=== PATIENT | female | born 1950 | race Caucasian/White ===

== ENCOUNTER 2021-06-08 02:37 | Day surgery (SDC) | payer MEDICARE, OTHER, SELFPAY ==
[2021-05-27 14:44] VITALS: BMI 37.8
--- NOTE | 2021-06-08 10:32 | WPDANESEPPF ---
Anes - Initial Pre Proc Eval Procedure: Operation Date: 06/08/21 12:30 Proposed Procedures p Colonoscopy - Oren Saldaña MD Date/Time: 06/08/21 10:32 Surgeon: Oren Saldaña MD Pre Op Diagnosis: positive cologuard Patient Data Age: 71 Gender: F Height: 1.5 m Weight: 85 kg Allergies Allergy/AdvReac Type Severity Reaction Status Date / Time cefuroxime [From Ceftin] Allergy Severe Rash Verified 06/08/21 11:12 Penicillins Allergy Unknown Rash Verified 06/08/21 11:12 Home Medications Medication Instructions Recorded Confirmed Type meloxicam 15 mg tablet 15 mg PO DAILY PRN #30 tablet 02/15/21 06/08/21 Rx cyanocobalamin (vitamin B-12) 1,000 mcg PO DAILY 04/19/21 06/08/21 History 1,000 mcg tablet fluticasone propionate 50 1 spray INTRANASAL BID #16 g 04/19/21 06/08/21 Rx mcg/actuation nasal spray,suspension [id number] C-herb no.124 1 tablet PO DAILY 05/27/21 06/08/21 History [Airborne Gummy] Patient hx anesthesia problems: none Family hx anesthesia problems: none PMFSH Past Medical History Medical History (Updated 06/08/21 @ 13:01 by Oliver Abad MD) Aortic heart murmur At high risk for falls Bilateral primary osteoarthritis of knee BMI 36.0-36.9,adult BMI 40.0-44.9, adult Breast cancer screening by mammogram Bruxism Chronic anxiety Colon cancer screening Cologuard screening 05/17/2021 positive. normal colonoscopy 06/08/2021 Degenerative arthritis of left foot Encounter for Medicare annual wellness exam Mitral regurgitation and aortic stenosis Mixed hyperlipidemia Obesity Osteoarthritis of both knees Positive colorectal cancer screening using Cologuard test (05/17/21) normal colonoscopy on 06/08/[address] Saldaña Situational anxiety Tension headache, chronic TMJ syndrome Vitamin B12 deficiency anemia Surgical History Surgical History (Updated 06/04/21 @ 12:29 by Jarrell Pierce DO) History of tubal ligation Family History Family History Father Hypertension Mother Hypertension Family history of Parkinson's disease Grandparent Diabetes mellitus Social History Social History Smoking packs per day: 2 Smoking cigarettes per day: 40.0 Years smoked: 10 Smoking pack-years: 20.00 Smoking status: Former smoker Smoking end date: 10/02/84 Alcohol intake: current Spiritual care concerns: No Anes - Eval Final PreProcedure Day of Procedure 06/08/21 10:32 Patient weight: obese Heart: regular rate and rhythm Lungs: clear to auscultation and normal air movement Airway: Mallampati scale class II Neurological: alert and oriented Last oral intake: >/= 8 hours ASA classification: III Emergent: no Anesthetic plan: proceed Anesthesia type and monitoring: general GIVS and standard monitoring Informed Consent: The patient's anesthetic plan and its attendant risks and benefits were discussed with the patient/family/POA. Questions were solicited and answers provided to the satisfaction of the patient/family/POA.
[2021-06-08 11:14] VITALS: BP 146/94; PULSE 90; RESP 18; TEMP 37.1; O2SAT 97; BMI 36.7
[2021-06-08] MEDS: LACTATED RINGERS 1,000 ML 150 ML IV CONT (11:17)
--- NOTE | 2021-06-08 11:22 | WPDGICN ---
Assessment and Plan Assessment and plan (1) Positive colorectal cancer screening using Cologuard test: Onset Date: 05/17/21 Code(s): R19.5 - Other fecal abnormalities Status: Acute Assessment and Plan: Patient recently found to have positive Cologuard test. Plan is for screening colonoscopy to evaluate more thoroughly. Further recommendations will be given after endoscopy. GI Consult Note Consult date/time: 06/08/21 11:22 HPI: Jessica Archer is a 71 year old female Presents for screening colonoscopy. Patient recently found to have positive Cologuard test. Patient reports that her current weight appetite bowel movements are normal. She denies abdominal pain. She has had no bleeding. Family history is noncontributory. Her last exam was about 20 years ago. Review of Systems Review of Systems: All systems reviewed & are unremarkable except as noted in HPI and below PMFSH Past Medical History Medical History (Updated 05/25/21 @ 07:38 by Oliver Abad MD) Aortic heart murmur At high risk for falls Bilateral primary osteoarthritis of knee BMI 36.0-36.9,adult BMI 40.0-44.9, adult Breast cancer screening by mammogram Bruxism Chronic anxiety Colon cancer screening Cologuard screening 05/17/2021 positive. Degenerative arthritis of left foot Encounter for Medicare annual wellness exam Mitral regurgitation and aortic stenosis Mixed hyperlipidemia Obesity Osteoarthritis of both knees Positive colorectal cancer screening using Cologuard test (05/17/21) Situational anxiety Tension headache, chronic TMJ syndrome Vitamin B12 deficiency anemia Surgical History Surgical History (Updated 06/04/21 @ 12:29 by Jarrell Pierce DO) History of tubal ligation Family History Family History Father Hypertension Mother Hypertension Family history of Parkinson's disease Grandparent Diabetes mellitus Social History Social History Smoking packs per day: 2 Smoking cigarettes per day: 40.0 Years smoked: 10 Smoking pack-years: 20.00 Smoking status: Former smoker Smoking end date: 10/02/84 Alcohol intake: current Living arrangements: alone Spiritual care concerns: No Meds Home Medications and Allergies Home Medications Medication Instructions Recorded Confirmed Type meloxicam 15 mg tablet 15 mg PO DAILY PRN #30 tablet 02/15/21 06/08/21 Rx cyanocobalamin (vitamin B-12) 1,000 mcg PO DAILY 04/19/21 06/08/21 History 1,000 mcg tablet fluticasone propionate 50 1 spray INTRANASAL BID #16 g 04/19/21 06/08/21 Rx mcg/actuation nasal spray,suspension [id number] C-herb no.124 1 tablet PO DAILY 05/27/21 06/08/21 History [Airborne Gummy] Allergies Allergy/AdvReac Type Severity Reaction Status Date / Time cefuroxime [From Ceftin] Allergy Severe Rash Verified 06/08/21 11:12 Penicillins Allergy Unknown Rash Verified 06/08/21 11:12 Vital Signs Vital Signs - 24 hr 06/08/21 11:14 Temperature 98.8 F Pulse Rate 90 Respiratory Rate 18 Blood Pressure 146/94 H Pulse Oximetry 97 Exam Narrative: Physical exam reveals patient to be alert. Vital signs stable. HEENT exam is unremarkable. Patient is anicteric. Lungs are clear to auscultation and percussion. Heart is without murmur or extra sounds. Abdominal exam bowel sounds are present soft nontender with no organomegaly. Digital external rectal exam is normal.
[2021-06-08 12:15] VITALS: BP 113/71; PULSE 82; RESP 17; O2SAT 93
[2021-06-08 12:25] VITALS: BP 113/74; PULSE 88; RESP 18; O2SAT 97
== END 2021-06-08 12:40 | disposition home or self-care (01) ==
PROVIDERS: PCP Family Medicine; Visit Provider Internal Medicine Gastroenterology
PROC: 0DJD8ZZ Inspection of Lower Intestinal Tract, Via Natural or Artificial Opening Endoscopic (ICD-10-PCS; CPT 45378; principal; 2021-06-08 12:30)
DX: R19.5 Other fecal abnormalities (principal); K64.8 Other hemorrhoids; D51.9 Vitamin B12 deficiency anemia, unspecified; F41.9 Anxiety disorder, unspecified; I34.0 Nonrheumatic mitral (valve) insufficiency; I35.0 Nonrheumatic aortic (valve) stenosis; E66.9 Obesity, unspecified; Z68.36 Body mass index [BMI] 36.0-36.9, adult; Z87.891 Personal history of nicotine dependence
CPT/HCPCS: 45378; J2001; J2704; J7120

== ENCOUNTER 2021-06-16 12:44 | Outpatient (CLI) | payer MEDICARE, OTHER, SELFPAY ==
--- NOTE | ~2021-06-16 | MM_ITS ---
EXAMINATION: MM screening promise BI w enoch HISTORY: Screening TECHNIQUE: Craniocaudal and mediolateral oblique 3-D tomosynthesis images were obtained and synthetic 2-D images were generated. CAD analysis was submitted and interpreted. COMPARISON: Comparison to multiple prior studies sequentially, with oldest reviewed study dated 02/17. BREAST PARENCHYMAL COMPOSITION: The breasts are heterogeneously dense, which may obscure small masses . FINDINGS: There is no evidence of suspicious mass, calcification, or architectural distortion to sugg est malignancy in either breast. There has been no suspicious interval change. IMPRESSION: 1. No mammographic evidence of malignancy. 2. Recommend routine screening mammography in one year. BI-RADS Category 1: Negative Reviewed, dictated and finalized at location A.
== END 2021-06-16 12:45 | disposition home or self-care (01) ==
PROVIDERS: PCP Family Medicine; Visit Provider Family Medicine
DX: Z12.31 Encounter for screening mammogram for malignant neoplasm of breast (principal)
CPT/HCPCS: 77063; 77067

== ENCOUNTER 2021-09-02 12:19 | Emergency (ER) | payer MEDICARE, OTHER, SELFPAY ==
[2021-09-02] VITALS (17 sets, daily range): BP systolic 121–150; BP diastolic 71–108; PULSE 73–95; RESP 12–20; TEMP 36.8; O2SAT 98–100
--- NOTE | ~2021-09-02 | CT_ITS ---
EXAMINATION: CT BRAIN W/O DATE: 09/02/2021 17:41 INDICATION: Dizziness TECHNIQUE: Computed tomography (CT) of the head was performed without intravenous contrast. The dose- length product was 605.33 mGy-cm. Automated exposure control and iterative reconstruction technique w ere employed. COMPARISON: No prior studies for comparison. FINDINGS: Normal brain parenchymal volume for age. Normal ybarra-white differentiation. No acute intrac ranial hemorrhage, infarction, mass or mass effect. No ventriculomegaly or midline shift. Midline sagittal images demonstrate a normal corpus callosum, c raniovertebral junction and sella turcica. Basilar cisterns are patent. There is mild mucosal thickening of the right maxillary sinus with mucoperiosteal reaction. Mastoids are pneumatized. No depressed skull fractures. IMPRESSION: 1. No acute intracranial abnormality. Reviewed, dictated and finalized at location B. AIN FISHING VESSEL
--- NOTE | 2021-09-02 17:19 | ED.DIZZY ---
HPI - Dizziness General Chief Complaint: Dizziness Stated Complaint: lightheaded since yesterday Time Seen by Provider: 09/02/21 17:19 Source: patient Mode of arrival: ambulatory Limitations: no limitations History of Present Illness HPI Narrative: Patient is a 71-year-old female complaining of dizziness, described as the room spinning, worse with head movement and ambulation, started this morning. Patient states that she was so dizzy that she had 1 episode of nausea and vomiting earlier today. Patient denies any headache, speech or visual disturbance, focal weakness or numbness, or unsteady gait. Patient denies any chest pain, shortness of breath, abdominal pain,, fever or chills. Related Data Home Medications Medication Instructions Recorded Confirmed cyanocobalamin (vitamin B-12) 1,000 mcg PO DAILY 04/19/21 06/23/21 1,000 mcg tablet [id number]-[id number] C-herb no.124 1 tablet PO DAILY 05/27/21 06/23/21 [Airborne Gummy] Allergies Allergy/AdvReac Type Severity Reaction Status Date / Time cefuroxime [From Ceftin] Allergy Severe Rash Verified 06/23/21 11:05 Penicillins Allergy Unknown Rash Verified 06/23/21 11:05 Review of Systems Review of Systems: All systems reviewed & are unremarkable except as noted in HPI and below Constitutional: Constitutional: Denies body ache(s), Denies chills, Denies excessive sweating, Denies fatigue, Denies fever(s), Denies headache(s), Denies lethargy, Denies malaise, Denies weakness and Denies weight loss Eyes: Eyes: Denies blurry vision, Denies change in vision and Denies loss of vision ENT: Denies dizziness, Denies ear discharge, Denies headache(s), Denies lip swelling, Denies epistaxis, Denies nasal congestion, Denies neck pain, Denies throat swelling and Denies tongue swelling Cardiovascular: Cardiovascular: Denies chest pain, Denies chest pain at rest, Denies chest pain with activity, Denies diaphoresis, Denies rapid heart rate, Denies edema, Denies irregular heart rhythm, Denies lightheadedness, Denies palpitations, Denies dyspnea and Denies dyspnea on exertion Respiratory: Respiratory: Denies chest congestion, Denies cough, Denies hemoptysis, Denies dyspnea and Denies dyspnea on exertion Gastrointestinal: Gastrointestinal: Denies abdominal pain, Denies melena, Denies hematochezia, Denies diarrhea, Denies nausea, Denies vomiting and Denies hematemesis Musculoskeletal: Musculoskeletal: Denies abnormal gait, Denies deformity, Denies joint swelling, Denies limited range of motion, Denies neck pain and Denies numbness Neurologic: Denies Abnormal speech present, Denies abnormal gait, Denies confusion, Denies headache(s), Denies focal weakness, Denies loss of vision, Denies numbness, Denies Other visual disturbances, Denies Sensory deficit (Neuro) and Denies weakness Psychiatric: Psychiatric: Denies confusion, Denies depression, Denies auditory hallucinations, Denies homicidal ideation and Denies suicidal ideation Endocrine: Endocrine: Denies cold intolerance, Denies excessive sweating, Denies fatigue, Denies heat intolerance and Denies palpitations Hematologic/Lymphatic: Hematologic/Lymphatic: Denies easy bleeding and Denies easy bruising Allergic/Immunologic: Allergic/Immunologic: Denies lip swelling, Denies throat swelling and Denies tongue swelling PMFSH Past Medical History Medical History Aortic heart murmur At high risk for falls Bilateral primary osteoarthritis of knee BMI 36.0-36.9,adult BMI 40.0-44.9, adult Breast cancer screening by mammogram normal mammogram 06/16/2021 Bruxism Chronic anxiety Colon cancer screening Cologuard screening 05/17/2021 positive. normal colonoscopy 06/08/2021 Degenerative arthritis of left foot Encounter for Medicare annual wellness exam Mitral regurgitation and aortic stenosis Mixed hyperlipidemia Obesity Osteoarthritis of both knees Positive colorectal cancer screening using Cologuard test
[2021-09-02] MEDS: MECLIZINE HCL 25 MG TABLET PO (17:45)
[2021-09-02] MEDS: LACTATED RINGERS 1,000 ML 250 ML IV CONT (17:51)
[2021-09-02] MEDS: PROMETHAZINE HCL 25 MG/ML AMPUL 12.5 MG IV PUSH (17:51)
[2021-09-02 17:59] LABS: Basophils Percent Auto 0.6 % (0.2-1.2); Eosinophils Percent Auto 0.3 % (0-4.4); Hematocrit 43.4 % (37.0-47.0); Hemoglobin 14.8 g/dL (12.0-15.0); Immature Granulocyte Absolute 0.04 K/mm3 (0.00-0.031); Immature Granulocyte Percent A 0.6 % (0-0.5); Lymphocytes Percent Auto 22.6 % (18.3-44.2); Mean Corpuscular HGB Conc 34.1 g/dl (32-36); Mean Corpuscular Hemoglobin 32.5 pg (26-34); Mean Corpuscular Volume 95.2 fl (80-100); Mean Platelet Volume 10.3 fl (7.4-10.4); Monocytes Absolute Auto 0.7 K/mm3 (0.1-0.6); Monocytes Percent Auto 10.9 % (2.6-8.5); Neutrophils Absolute Auto 4.3 K/mm3 (1.3-6.7); Platelet Count Result 280 k/mm3 (150-375); Red Blood Count 4.56 M/mm3 (4.2-5.4); Red Cell Distribution Width 13.2 % (11.5-14.5); White Blood Count 6.6 K/mm3 (4.5-10.0)
[2021-09-02 18:09] LABS: Alanine Aminotransferase 16 U/L (4-35); Albumin Level 4.3 g/dL (3.5-5.1); Alkaline Phosphatase 89 U/L (38-126); Anion Gap 7 mmol/L (8-16); Aspartate Amino Transferase 22 U/L (14-36); Bilirubin,Total 0.5 mg/dL (0.2-1.3); Blood Urea Nitrogen 12 mg/dL (7-17); Calcium 9.8 mg/dL (8.4-10.2); Carbon Dioxide 26 mmol/L (22-30); Chloride 103 mmol/L (98-107); Estimated Glomerular Filt Rate > 60; Glucose 131 mg/dL (65-110); Potassium 3.7 mmol/L (3.4-5.0); Sodium 136 mmol/L (137-145)
[2021-09-02 18:20] LABS: Troponin I < 0.012 ng/mL (0.000-0.034)
[2021-09-02 18:43] LABS: Add Urine Microscopic? YES; Appearance Urine Cloudy (Clear); Bacteria Urine 2+ /hpf; Bilirubin Urine Negative (Negative); Blood Urine Negative (Negative); Color Urine Amber (Yellow); Glucose Urine UA Negative (Negative); Ketones Urine Negative (Negative); Leukocyte Esterase Ur 1+ LEU/UL (Negative); Mucus Urine Heavy /lpf; Nitrate Urine Negative (Negative); Protein Urine Negative (Negative); Specific Grav Ur 1.023 (1.001-1.035); Squamous Epithelial Cell Urine Many /hpf (Few); Urobilinogen Urine Negative mg/dL (<2.0)
--- NOTE | 2021-09-02 19:17 | ECG_ITS ---
Measurements Intervals [place] Rate: 72 P: 35 AK: 132 QRS: -21 QRSD: 95 T: 22 QT: 399 QTc: 439 Interpretive Statements SINUS RHYTHM NORMAL ECG Electronically Signed On 09-03-2021 5:52:24 LACE PAPER MACHINE OPERATOR by Olvin Soni D.O.
== END 2021-09-02 20:07 | disposition home or self-care (01) ==
PROVIDERS: Emergency Provider Emergency Medicine; PCP Family Medicine
DX: R42 Dizziness and giddiness (principal); F41.8 Other specified anxiety disorders; E78.2 Mixed hyperlipidemia; E66.9 Obesity, unspecified; Z87.891 Personal history of nicotine dependence; Z79.899 Other long term (current) drug therapy; Z68.36 Body mass index [BMI] 36.0-36.9, adult
CPT/HCPCS: 36415; 70450; 80053; 81001; 84484; 85025; 87086; 87088; 93005; 96361; 96374; 99284; A9270; J2550; J7120

== ENCOUNTER 2021-12-06 13:35 | Outpatient (CLI) | payer MEDICARE, OTHER, SELFPAY ==
--- NOTE | 2021-12-06 | ECG_ITS ---
Measurements Intervals [place] Rate: 86 P: 60 MI: 124 QRS: -21 QRSD: 88 T: 57 QT: 361 QTc: 433 Interpretive Statements SINUS RHYTHM BORDERLINE LEFT AXIS DEVIATION [QRS AXIS < -20] OTHERWISE UNREMARKABLE ECG COMPARED TO ECG 09/02/2021 19:27:07 NO SIGNIFICANT CHANGES Electronically Signed On 12-06-2021 15:52:43 COATING ENGINEER by Prashanth Byrd M.D.
[2021-12-06 14:16] LABS: Hematocrit 45.9 % (37.0-47.0); Hemoglobin 15.6 g/dL (12.0-15.0)
[2021-12-06 14:30] LABS: Hemoglobin A1C 5.1 % (<5.7)
[2021-12-06 14:33] LABS: Albumin Level 4.5 g/dL (3.5-5.1); Estimated Glomerular Filt Rate 55
[2021-12-06 14:53] LABS: Glucose 123 mg/dL (65-110)
== END 2021-12-06 13:36 | disposition home or self-care (01) ==
PROVIDERS: PCP Family Medicine; Visit Provider Orthopaedic Surgery
DX: M17.12 Unilateral primary osteoarthritis, left knee (principal); Z01.818 Encounter for other preprocedural examination
CPT/HCPCS: 82040; 82565; 82947; 83036; 85014; 85018; 93005

== ENCOUNTER 2022-02-07 11:32 | Outpatient (CLI) | payer MEDICARE, OTHER, SELFPAY ==
[2022-02-07 13:12] LABS: Basophils Percent Auto 0.5 % (0.2-1.2); Eosinophils Absolute Auto 0.1 K/mm3 (0-0.3); Eosinophils Percent Auto 1.9 % (0-4.4); Hemoglobin 14.3 g/dL (12.0-15.0); Immature Granulocyte Absolute 0.01 K/mm3 (0.00-0.031); Immature Granulocyte Percent A 0.2 % (0-0.5); Lymphocytes Percent Auto 36.7 % (18.3-44.2); Mean Corpuscular HGB Conc 32.5 g/dl (32-36); Mean Corpuscular Volume 95.4 fl (80-100); Mean Platelet Volume 9.8 fl (7.4-10.4); Monocytes Absolute Auto 0.6 K/mm3 (0.1-0.6); Monocytes Percent Auto 9.6 % (2.6-8.5); Neutrophils Absolute Auto 2.9 K/mm3 (1.3-6.7); Neutrophils Percent Auto 51.1 % (45.5-73.1); Platelet Count Result 275 k/mm3 (150-375); Red Blood Count 4.61 M/mm3 (4.2-5.4); Red Cell Distribution Width 13.1 % (11.5-14.5); White Blood Count 5.7 K/mm3 (4.5-10.0)
[2022-02-07 13:21] LABS: Albumin Level 4.2 g/dL (3.5-5.1); Estimated Glomerular Filt Rate > 60; Glucose 109 mg/dL (65-110)
== END 2022-02-07 11:33 | disposition home or self-care (01) ==
PROVIDERS: PCP Family Medicine; Visit Provider Orthopaedic Surgery
DX: M17.12 Unilateral primary osteoarthritis, left knee (principal); Z01.818 Encounter for other preprocedural examination
CPT/HCPCS: 82040; 82565; 82947; 85025; 87081

== ENCOUNTER 2022-02-09 11:30 | Outpatient (CLI) | payer MEDICARE, OTHER, SELFPAY ==
[2022-02-09 11:56] LABS: Urine Cotinine NEGATIVE
== END 2022-02-09 11:31 | disposition home or self-care (01) ==
LOC: ANHSURGERY 11:30
PROVIDERS: PCP Family Medicine; Visit Provider Orthopaedic Surgery
DX: M17.0 Bilateral primary osteoarthritis of knee (principal); Z01.818 Encounter for other preprocedural examination
CPT/HCPCS: 80307

== ENCOUNTER 2022-03-09 11:09 | Observation (INO) | payer MEDICARE, OTHER, SELFPAY ==
[2022-02-07 11:53] VITALS: BMI 38.7
--- NOTE | 2022-02-07 12:25 | PC.NURSE ---
Addendum entered by Kelsey Palumbo RN 02/07/22 12:31: TOTAL JOINT CLASS 02/16/22 AT 10 AM Original Note: Report to the Outpatient Waiting Room, entrance under the green pavilion located off [address], at time _0830 on date _03/08/22 . OR Time: _1030 . - You and your visitor will be asked a series of questions to screen for COVID 19 for your protection. - Only one visitor is allowed at this time. - The patient visitor is requested to leave or wait in car when not with patient. - A mask is required within the hospital. Patients may have clear liquids (water, carbonated beverages, clear teas, apple juice) until 3 hours prior to surgery with a maximum of 20 ounces. - No food from midnight until time of surgery - Infants may have breast milk until 4 hours before surgery, infant formula 6 hours prior to surgery. - Children will be allowed to drink immediately following surgery. If applicable, please bring a bottle or sippy cup to assist with drinking. Juice, water, soda, and popsicles are readily available. For infants on formula, please bring formula the day of surgery. Pacifiers are allowed. Take the following medications with a SIP of water the morning of surgery: __NONE Medications to discontinue per physician ___MELOXICAM 7 DAYS PRE OP Date to take last dose 02/28/22 Please no make-up, nail pitcairn islander, hairspray, perfume, deodorant, or body powder the day of surgery. No jewelry (including any body piercings) or valuables the day of surgery, leave them at home. Please take a shower or bath the night before, or the morning of, surgery with an antibacterial soap. Wear comfortable, loose fitting clothing. Children are encouraged to wear pajamas. - Jewelry must be removed prior to entering the operating room. Rings and piercings that are not removed may be cut off. - The hospital will not accept responsibility for valuables. - Please leave all valuables, including medications, at home the day of surgery. If you are going home after surgery, a licensed helper driver must drive you home. - NO public transportation without another adult. - We recommend that an adult stay with you for 24 hours following discharge. - We also recommend that you do not drive, make important decision, drink alcoholic beverages, or take any drugs that were not prescribed by your health care provider for at least 24 hours after your discharge time. For Pediatric surgeries, we recommend two adults accompany the child home (only one inside the building at this time). Follow any additional instructions given to you from your surgeon. If you or anyone in your household have experienced Covid symptoms in the past week, please notify your surgeon or the nurse liaison at the phone number below for possible testing. VERBAL AND WRITTEN instructions given to _PATIENT and asked if any additional questions and then verbalized understanding. Patient advised to call surgeon office or pre surgery nurse liaison [phone] if any additional questions.
[2022-02-07 12:51] VITALS: BP 143/76; PULSE 73; RESP 18; TEMP 36.7; O2SAT 98
--- NOTE | 2022-03-07 13:40 | WPDANESEPPF ---
Anes - Initial Pre Proc Eval Procedure: Operation Date: 03/08/22 10:30 Proposed Procedures p Left Total Knee Arthroplasty - Yusuf Christien MD Date/Time: 03/07/22 13:40 Surgeon: Yusuf Christine MD Pre Op Diagnosis: primary OA left knee Patient Data Age: 72 Gender: F Height: 1.5 m Weight: 87 kg Last Vital Signs Temp 36.7 C 02/07/22 12:51 Pulse 73 02/07/22 12:51 Resp 18 02/07/22 12:51 BP 143/76 H 02/07/22 12:51 Pulse Ox 98 02/07/22 12:51 O2 Del Method Room Air 02/07/22 12:51 Allergies Allergy/AdvReac Type Severity Reaction Status Date / Time cefuroxime [From Ceftin] Allergy Severe Rash Verified 03/08/22 08:34 Penicillins Allergy Unknown Unknown Verified 03/08/22 08:34 Home Medications Medication Instructions Recorded Confirmed Type omeprazole 20 mg capsule,delayed 20 mg PO DAILY #30 caps 06/30/21 03/08/22 Rx release meloxicam 7.5 mg tablet 7.5 mg PO BID 02/04/22 03/08/22 History Patient hx anesthesia problems: none Family hx anesthesia problems: none Results Review: All pre-operative results and documents have been reviewed as part of the pre-operative evaluation. [facility] Past Medical History Medical History (Updated 03/07/22 @ 13:42 by Richard Garcia MD) Aortic heart murmur mild aortic stenosis - 1.8 cm2 03/2019 At high risk for falls Bilateral primary osteoarthritis of knee BMI 36.0-36.9,adult BMI 37.0-37.9, adult BMI 40.0-44.9, adult Breast cancer screening by mammogram normal mammogram 06/16/2021 Bruxism Chronic anxiety Colon cancer screening Cologuard screening 05/17/2021 positive. normal colonoscopy 06/08/2021 Degenerative arthritis of left foot Encounter for Medicare annual wellness exam Former smoker Mitral regurgitation and aortic stenosis Mixed hyperlipidemia Obesity Osteoarthritis of both knees Positive colorectal cancer screening using Cologuard test (05/17/21) normal colonoscopy on 06/08/[address] Saldaña Situational anxiety Tension headache, chronic TMJ syndrome Urinary incontinence Vertigo Vitamin B12 deficiency anemia Surgical History Surgical History History of tubal ligation Family History Family History Father Hypertension Mother Hypertension Family history of Parkinson's disease Grandparent Diabetes mellitus Social History Social History Smoking packs per day: 1 Smoking cigarettes per day: 20.0 Years smoked: 18 Smoking pack-years: 18.00 Smoking status: Former smoker Tobacco type: cigarettes Smoking end date: 10/02/84 Additional smoking assessment comments: DENIES ANY FORM OF TOBACCO USE Alcohol intake: current Living arrangements: alone Spiritual care concerns: No Anes - Eval Final PreProcedure Day of Procedure 03/07/22 13:40 Patient weight: obese Heart: regular rate and rhythm Lungs: clear to auscultation and normal air movement Airway: Mallampati scale class II Neurological: alert and oriented Last oral intake: >/= 8 hours ASA classification: III Emergent: no Anesthetic plan: proceed Anesthesia type and monitoring: general LMA and standard monitoring Results Review: All pre-operative results and documents have been reviewed as part of the pre-operative evaluation. Informed Consent: The patient's anesthetic plan and its attendant risks and benefits were discussed with the patient/family/POA. Questions were solicited and answers provided to the satisfaction of the patient/family/POA.
--- NOTE | 2022-03-07 13:42 | WPDANESPNB ---
Anes - Peripheral Nerve Block Date/Time: 03/07/22 13:42 I have discussed with the patient/family/POA the placement of a peripheral nerve block for post-operative pain management, including associated risks, benefits, complications, and side effects. Alternative methods of post-operative analgesia were detailed. Questions were solicited and answers provided to the satisfaction of the patient/family/POA. Time-Out: A pre-procedural Time-Out was completed immediately before starting the procedure and confirmed: Patient Identification, Site, Procedure, Patient Position and the Availability of Requisite Equipment. Clinical Indications: Acute post-operative pain management requested by the operative surgeon. Nerve Block Insertion Note Anes-nerve block: adductor canal left Patient position: supine Skin prep: chlorhexidine Needle: 22 gauge, stimulating, insulated echogenic needle. Needle length: 80 mm Technique: ultrasound Technique comment: in plane Injectate: bupivacaine 0.5% with epi 5 mcg/ml (30cc) Observations: tolerated well Complications: none Procedure start time:: 1005 Procedure end time:: 1010
[2022-03-08] VITALS (16 sets, daily range): BP systolic 104–145; BP diastolic 54–74; PULSE 72–98; RESP 12–19; TEMP 36.4–37.6; O2SAT 96–100
--- NOTE | 2022-03-08 07:18 | WPDHPUPDATE1 ---
History and Physical Update Update Date/Time: 03/08/22 07:18 History and Physical has been reviewed, including an updated exam of the patient. There are NO changes in the patient's condition. Risks, benefits, and alternatives have been discussed and questions answered. Patient agrees to proceed with procedure.
[2022-03-08] MEDS: ACETAMINOPHEN 500 MG TABLET 1000 MG PO (08:38)
[2022-03-08] MEDS: LACTATED RINGERS 1,000 ML 30 ML IV CONT ×2 (08:57→12:54)
[2022-03-08] MEDS: TRANEXAMIC ACID 1,000MG/ISO100 1,000 MG/100 ML BAG 200 MG IVPB (10:00)
--- NOTE | 2022-03-08 10:24 | PM.HPGS ---
History of Present Illness History of Present Illness Consent: Risks, benefits, and alternatives have been discussed and questions answered. Patient agrees to proceed with procedure. Chief complaint: primary OA left knee Narrative: Patient presents for pre-op visit for Left TKA. No other changes. Severe left knee pain and stiffness. Severe left worse than right knee pain and difficulty with ADL's. Uses a cane. Unable to walk more than 2 blocks. Examination? Morbidly obese.? No distress.? Severe limp with a cane.? Bilateral knee contractures.? Left knee 20? to 60?.? Right knee 15? to 115?.? Also varus deformity.? Walks with a show slow shuffling gait with small steps.? Hip examination benign.? Distal neurovascular status intact.? No instability of the knee.? No skin rashes or lesions.? No previous scars. Diagnostics? Bilateral knee films show severe tricompartmental arthritis.? Involving all 3 compartments with moderate to severe varus deformity.? Osteopenia suggested. Impression? End-stage arthritis bilateral knees.? Left mostly symptomatic.? Failed therapy and injections.? I recommend left total knee arthroplasty.?? Anticipate a posterior stabilized knee design. Will also perform an intraarticular steroid injection right knee. Review of Systems Review of Systems: All systems reviewed & are unremarkable except as noted in HPI and below PMFSH Past Medical History Medical History Aortic heart murmur mild aortic stenosis - 1.8 cm2 03/2019 At high risk for falls Bilateral primary osteoarthritis of knee BMI 36.0-36.9,adult BMI 37.0-37.9, adult BMI 40.0-44.9, adult Breast cancer screening by mammogram normal mammogram 06/16/2021 Bruxism Chronic anxiety Colon cancer screening Cologuard screening 05/17/2021 positive. normal colonoscopy 06/08/2021 Degenerative arthritis of left foot Encounter for Medicare annual wellness exam Former smoker Mitral regurgitation and aortic stenosis Mixed hyperlipidemia Obesity Osteoarthritis of both knees Positive colorectal cancer screening using Cologuard test (05/17/21) normal colonoscopy on 06/08/[address] Saldaña Situational anxiety Tension headache, chronic TMJ syndrome Urinary incontinence Vertigo Vitamin B12 deficiency anemia Surgical History Surgical History History of tubal ligation Family History Family History Father Hypertension Mother Hypertension Family history of Parkinson's disease Grandparent Diabetes mellitus Social History Social History Smoking packs per day: 1 Smoking cigarettes per day: 20.0 Years smoked: 18 Smoking pack-years: 18.00 Smoking status: Former smoker Tobacco type: cigarettes Smoking end date: 10/02/84 Additional smoking assessment comments: DENIES ANY FORM OF TOBACCO USE Alcohol intake: current Living arrangements: alone Spiritual care concerns: No Meds Home Medications and Allergies Home Medications Medication Instructions Recorded Confirmed Type omeprazole 20 mg capsule,delayed 20 mg PO DAILY #30 caps 06/30/21 03/08/22 Rx release meloxicam 7.5 mg tablet 7.5 mg PO BID 02/04/22 03/08/22 History Allergies Allergy/AdvReac Type Severity Reaction Status Date / Time cefuroxime [From Ceftin] Allergy Severe Rash Verified 03/08/22 08:34 Penicillins Allergy Unknown Unknown Verified 03/08/22 08:34 Vital Signs Vital Signs - 24 hr 03/08/22 08:25 Temperature 36.9 C Pulse Rate 96 Respiratory Rate 16 Blood Pressure 143/74 H Pulse Oximetry 98 Oxygen Delivery Room Air Assessment and Plan Assessment and plan (1) Osteoarthritis of both knees: Code(s): M17.0 - Bilateral primary osteoarthritis of knee Status: Acute
[2022-03-08] MEDS: CLINDAMYCIN 900 MG/D5W 50 ML 900 MG/50 ML PIGGYBACK 50 MG IVPB (10:32)
[2022-03-08] MEDS: methylPREDNISolone ACETATE 80 MG/ML VIAL I-ARTICULR (11:00)
--- NOTE | 2022-03-08 14:36 | ADMGEN ---
This patient, Jessica Archer, was admitted to Medical Room 260-01. Patient/family oriented to hospital policies and general routines including ID bracelet, bed and alarms, visiting hours, pain management, procedures, bathroom and other care routines, personal items, smoking policy, room service/diet, and visiting hours. Information on how to activate the Rapid Response Team has been discussed. Patient/Family are encouraged to report perceived risks to care and to ask questions if they do not understand what they are told or what they should do.
[2022-03-08] MEDS: SENNA/DOCUSATE SODIUM TABLET 2 TAB PO (16:37)
[2022-03-08] MEDS: MELOXICAM 7.5 MG TABLET PO (16:37)
[2022-03-08] MEDS: ASPIRIN 81 MG ENTERIC TABLET PO (16:38)
--- NOTE | 2022-03-08 17:36 | W.PM.PROC2 ---
Procedure Note - Detailed Date of Procedure 03/08/22 Pre-op Diagnosis Primary OA bilateral knees. Post-op Diagnosis Same Procedure Performed 1. Total knee arthroplasty, left knee. 2. Depo Medrol injection right knee. Surgeon Yusuf Christine MD Academic Tutor Lizbet Mulligan PA-C Anesthesia General and Regional (subsartorial block) Findings Good bone quality. Large medial release required. Flexion contracture and varus deformity corrected. Standard bony resections. Posterior stabilized knee. Description of Procedure The patient was brought to the operating room. A general anesthetic was administered. The right leg injection site was prepped and draped with alcohol and Betadine. 80 mg Depo-Medrol was injected into the suprapatellar pouch. Sterile adhesive bandage was applied. The left leg was prepped and draped in the usual sterile fashion. The limb was elevated and the tourniquet inflated to 300 mmHg during initial exposure, and cementation. A longitudinal incision was created along the medial border of the patella and patellar tendon, and a trivector approach to the knee was performed. very large medial release was taken. The knee was then flexed. The osteophytes were carefully removed. The intramedullary guide was placed in the femoral canal. The distal femoral resection was then taken with the oscillating saw. The collateral ligaments were carefully protected. The tibia was carefully exposed. The jig was applied, and the proximal tibia was resected according to preoperative plan. The knee was balanced in extension. Appropriate releases were taken where needed. The anterior cruciate ligament and meniscal remnants were removed. The posterior cruciate ligament was sacrificed. The patella was measured. Patellar resection was carried out with the oscillating saw. The lug holes drilled. The femur was sized and rotation assessed using a combination of gap balancing, posterior referencing, and the AP axis. The 4 in 1 cutting block, and box cut guide were used to finish the femoral cuts after equal gaps were assured. The osteophytes were carefully removed from the back of the knee. The knee was copiously irrigated with antibiotic solution periodically throughout the procedure. The meniscal remnants were removed. The spacer block was used to confirm equal flexion and extension gaps. The tibia was sized and broached. The bony surfaces were prepared for cementing with pulsatile lavage. The real tibial and femoral and patellar components were cemented into position. Excess cement was carefully removed. Patellar tracking was carefully assessed. No additional releases were required. Dilute sterile Betadine soak performed for three minutes. Copious irrigation then performed. The wound was closed with #1 Vicryl suture, #2, 2-0, and 3-0 barbed suture, followed by Steri-Strips. A sterile bulky dressing was applied. Meticulous hemostasis was maintained throughout the procedure. The bipolar cautery device was used. The pain relieving mixture was injected into the periarticular tissues during the procedure. There were no complications. The patient was extubated and brought to the recovery room in stable condition after the application of sterile dressing with Ritchie bandage. [employer] Triathlon knee system, low profile cemented tibia size 4, cemented cruciate retaining femoral component size 3 ,and an 12 mm, X3 poly, cruciate retaining polyethylene insert. 32 mm asymmetric all polyethylene patella component. Estimated Blood Loss 200 Drains No Pathology None sent Complications No immediate complications Condition Stable Disposition PACU [facility] Billing Surgery - Charge Forward: Surgery Billing
[2022-03-08] MEDS: FAMOTIDINE 20 MG TABLET PO (22:27)
[2022-03-09] VITALS (10 sets, daily range): BP systolic 97–135; BP diastolic 49–70; PULSE 76–118; RESP 16–20; TEMP 36.1–37.4; O2SAT 97–100
--- NOTE | 2022-03-09 | ECHO_ITS ---
Patient Info Name: Jessica Archer Age: 72 years : 1950 Gender: Female Ht: 58 in Wt: 188 lbs BSA: 1.92 m2 HR: 77 bpm BP: 97 / 59 mmHg Heart Rhythm: Sinus Rhythm Technical Quality: Fair Exam Date: 03/09/2022 11:29 AM Exam Location: [facility] Patient Status: Outpatient Admit Date: 03/09/2022 Staff Ordering Physician: Ashley Coffey PA-C Damper Worker: Sussy Tavera RDCS Attending Provider: Yusuf Christine MD Referring Physician: Alexx GLEZ; Exam Type: CA echo doppler color flow Study Info Indications - Syncope, Cardiac murmur Complete two-dimensional, color flow and Doppler transthoracic echocardiogram is performed. Summary 1. Complete two-dimensional, color flow and Doppler transthoracic echocardiogram is performed. 2. Left ventricular chamber dimension is normal. 3. Left ventricular systolic function is hyperdynamic, estimated at >70%. 4. The left ventricular diastolic function is grade I diastolic dysfunction. 5. E/e' 15 is elevated. 6. Left atrial chamber dimension is moderately enlarged. 7. There is moderate aortic valve sclerosis. 8. There is mild aortic valve stenosis with a peak velocity of 312 cm/s, mean gradient of 22 mmHg, and aortic valve area of 1.6 cm2. 9. The mitral valve has moderately calcified annulus. 10. There is mild mitral valve regurgitation. 11. There is trace tricuspid valve regurgitation. 12. Mild pulmonary hypertension, estimated pulmonary arterial systolic pressure is 47 mmHg. Left Ventricle E/e' 15 is elevated. Left ventricular chamber dimension is normal. Left ventricular systolic function is hyperdynamic, estimated at >70%. The left ventricular diastolic function is grade I diastolic dysfunction. Right Ventricle Right ventricular systolic function is normal and with normal TAPSE 2.2 cm. Right ventricular chamber dimension is normal. Left Atria Left atrial chamber dimension is moderately enlarged. Right Atria Right atrial chamber dimension is normal. Aortic Valve The aortic valve is trileaflet. There is moderate aortic valve sclerosis. There is mild aortic valve stenosis with a peak velocity of 312 cm/s, mean gradient of 22 mmHg, and aortic valve area of 1.6 cm2. There is no aortic valve regurgitation. Pulmonic Valve There is no pulmonic regurgitation. Mitral Valve The mitral valve has moderately calcified annulus. There is no mitral valve stenosis. There is mild mitral valve regurgitation. Tricuspid Valve There is trace tricuspid valve regurgitation. Mild pulmonary hypertension, estimated pulmonary arterial systolic pressure is 47 mmHg. Pericardium/Pleural There is no pericardial effusion. Inferior Vena Cava Normal inferior vena cava with >50% collapse upon inspiration consistent with normal right atrial pressure, 5 mmHg. Aorta The aortic root size at the sinus of Valsalva is normal. Left Ventricular Outflow Tract Name Value Normal LVOT 2D LVOT Diameter 1.9 cm LVOT Doppler LVOT Peak Gradient 10 mmHg LVOT Mean Gradient 5 mmHg LVOT VTI
--- NOTE | ~2022-03-09 | XR_ITS ---
EXAMINATION: XR knee LT 2V DATE: 03/08/2022 13:04 INDICATION: Total left knee arthroplasty. Postop. TECHNIQUE: 2 views of left knee were obtained. COMPARISON: Left knee radiographs 07/25/2019 FINDINGS: There is a total left knee arthroplasty with patellar resurfacing in near-anatomic alignmen t. No fracture. There is gas in the joint and soft tissues, consistent with recent surgery. IMPRESSION: 1. Total left knee arthroplasty in near-anatomic alignment. Reviewed, dictated and finalized at location A.
[2022-03-09] MEDS: predniSONE 5 MG TABLET PO (08:23)
[2022-03-09] MEDS: ASPIRIN 81 MG ENTERIC TABLET PO ×2 (08:23→16:26)
[2022-03-09] MEDS: FAMOTIDINE 20 MG TABLET PO ×2 (08:24→20:58)
[2022-03-09] MEDS: PANTOPRAZOLE 40 MG TABLET PO (08:24)
[2022-03-09] MEDS: MELOXICAM 7.5 MG TABLET PO ×2 (08:24→16:26)
--- NOTE | 2022-03-09 09:13 | WPDANESPN ---
Anes - Prog Note Post-Op Date/Time: 03/09/22 09:13 Cardiovascular status: normal Respiratory status: normal Airway patency: baseline Mental status: baseline Post-Op hydration status: normal Vital Signs: Last Vital Signs Temp 36.1 C L 03/09/22 04:08 Pulse 88 03/09/22 04:08 Resp 17 03/09/22 04:08 BP 123/49 L 03/09/22 04:08 Pulse Ox 100 03/09/22 04:08 O2 Del Method Room Air 03/08/22 21:29 O2 Flow Rate 8 03/08/22 13:05 Pain Score (VAS): 3 I/O: Intake & Output 03/08/22 03/09/22 03/09/22 23:59 07:59 15:59 Intake Total 440 400 240 Output Total 1200 900 Balance -760 -500 240 03/08/22 08:50 Blood Type A Negative Antibody Screen Negative Patient Feedback: Patient satisfied with anesthetic care.
--- NOTE | 2022-03-09 09:25 | PM.DS ---
DS: Admitting Diagnosis Discharge Date 03/09/22 Admitting Diagnosis OA knee Left DS: Discharge Diagnosis Discharge Diagnosis (1) Status post total left knee replacement: Code(s): Z96.652 - Presence of left artificial knee joint Status: Acute Assessment and Plan: Postop day 1: Left total knee arthroplasty. Patient tolerated procedure well. No complications. Pain manageable with pain medication. No numbness or tingling. We had a lengthy discussion regarding postoperative wound care, limitations, expectations, and exercises. Patient shows good understanding. He has had initial physical therapy and is tolerating it well. DVT prophylaxis: 81 mg baby aspirin b.i.d. for 14 days. Pain medication: Percocet. Meloxicam. Prednisone. Patient has followup appointment with Dr. Christine in 3 weeks. DS: Summary Hospital Course Reason for hospitalization: Total knee arthroplasty Hospital Course: Patient tolerated procedure well. Has had initial PT/OT. Status at Discharge Functional status at discharge: uses cane/walker Overall status at discharge: patient is progressing back to baseline Time Spent with Patient Time attestation: Total time spent providing and/or coordinating discharge services: Exam Narrative: Obese female Resting comfortably in bed. Wearing compression socks bilaterally. Dressing intact with no drainage. Moderate swelling. Small area of ecchymosis. No erythema. No hematoma. Range of motion limited due to pain. Calf nontender. Neurologic status intact. No varicosities. Distal pulses palpable. DS: Data Data Completed and Pending Labs on day of discharge: Labs from last 24 hours 03/08/22 08:50 Blood Type A Negative Antibody Screen Negative Discharge Plan Discharge Patient Disposition: Home, Self-Care Discharge Instructions: See green instruction sheet Patient Instructions: Pain Management (ED), Precautions after Total Joint Replacement Surgery (ED), Joint Replacement Surgery (GEN), Knee Replacement (GEN) Follow-up/Referrals: Lizbet Mulligan PA [Physician Electronic Intelligence Officer] - Discharge Medications: New prednisone 5 mg tablet 5 mg PO DAILY 21 Days Qty: 21 0RF aspirin 81 mg tablet,delayed release (DR/EC) 81 mg PO BID 14 Days Qty: 28 0RF oxycodone-acetaminophen 5-325 mg tablet 1 - 2 tablet PO Q4-6H MDD 6 PRN (Reason: pain) Qty: 30 0RF meloxicam 15 mg tablet 15 mg PO DAILY Qty: 30 0RF Rx Instructions: Cut in half. Take 1/2 in morning and 1/2 at night. Take with food. Stop if stomach upset. Continued meloxicam 7.5 mg tablet 7.5 mg PO BID omeprazole 20 mg capsule,delayed release(DR/EC) 20 mg PO DAILY Qty: 30 11RF
--- NOTE | 2022-03-09 09:59 | PM.PNORT ---
Progress Note: A&P Assessment and Plan (1) Status post total left knee replacement: Code(s): Z96.652 - Presence of left artificial knee joint Status: Acute Plan POD #1 Total knee arthroplasty Left. At the time of my visit, patient was doing well. Pain controlled. Was planning on discharge today. However patient had a syncopal episode when trying to get up with PT. Will consult hospitalist. Patient will likely need to stay another night. Subjective Subjective Date/Time Seen: 03/09/22 09:59 Interval history: Patient progressing well. No complaints. Review of Systems Review of Systems: All systems reviewed & are unremarkable except as noted in HPI and below Exam Narrative: 72-year-old overweight female. Resting comfortably in bed. Alert and oriented x3. No acute distress. Dressing intact with no drainage. Moderate swelling. Slight ecchymosis. No erythema. No hematoma. No warmth. Range of motion limited due to pain. Calf nontender. Neurologic status intact. No varicosities. Distal pulses palpable. Light touch sensation intact. Good capillary refill. Objective Data Vital Signs Vital Signs: Vital Signs - 24 hr 03/08/22 12:54 03/08/22 13:05 03/08/22 13:20 Temperature 99.6 F Pulse Rate 98 95 91 Respiratory Rate 19 14 12 Blood Pressure 142/70 H 134/64 141/73 H Pulse Oximetry 100 100 Oxygen Delivery Simple Face Mask Simple Face Mask Room Air Oxygen Flow Rate 8 8 03/08/22 13:35 03/08/22 13:50 03/08/22 14:05 Temperature Pulse Rate 95 87 86 Respiratory Rate 12 12 12 Blood Pressure 145/74 H 141/71 H 141/71 H Pulse Oximetry 96 96 96 Oxygen Delivery Room Air Room Air Room Air Oxygen Flow Rate 03/08/22 14:20 03/08/22 14:30 03/08/22 14:45 Temperature 97.9 F 97.9 F Pulse Rate 84 85 81 Respiratory Rate 18 16 16 Blood Pressure 136/68 134/56 L 140/63 Pulse Oximetry 98 100 100 Oxygen Delivery Room Air Oxygen Flow Rate 03/08/22 15:15 03/08/22 15:53 03/08/22 16:15 Temperature 98.0 F 97.9 F Pulse Rate 85 91 Respiratory Rate 16 16 Blood Pressure 134/58 L 132/68 Pulse Oximetry 99 96 Oxygen Delivery Room Air Oxygen Flow Rate 03/08/22 19:55 03/08/22 23:34 03/08/22 21:29 Temperature 97.6 F 97.9 F Pulse Rate 75 72 Respiratory Rate 18 16 Blood Pressure 128/57 L 104/54 L Pulse Oximetry 98 98 98 Oxygen Delivery Room Air Oxygen Flow Rate 03/08/22 20:30 03/09/22 04:08 03/09/22 09:48 Temperature 97 F L 98.6 F Pulse Rate 72 88 77 Respiratory Rate 16 17 20 Blood Pressure 123/49 L 97/59 L Pulse Oximetry 98 100 97 Oxygen Delivery Room Air Oxygen Flow Rate 03/09/22 09:28 Temperature Pulse Rate 76 Respiratory Rate Blood Pressure 97/59 L Pulse Oximetry 97 Oxygen Delivery Oxygen Flow Rate Intake/Output Intake/Output: Intake & Output 03/06/22 03/07/22 03/08/22 03/09/22 23:59 23:59 23:59 23:59 Intake Total 790 640 Output Total 1200 900 Balance -410 -260 Meds/Results Medications: Active Medications Generic Name Dose Route Start Last Admin Trade Name Freq PRN Reason Stop Dose Admin Acetaminophen 1,000 mg 03/09/22 09:00 Acetaminophen 500 Mg Tablet PO Q6H PRN Pain Rated 1-3 Aspirin 81 mg 03/08/22 17:00 03/09/22 08:23 Aspirin 81 Mg Enteric Tablet PO 81 mg BID JOSÉ MIGUEL Administration Cyclobenzaprine HCl 10 mg 03/08/22 14:23 Cyclobenzaprine Hcl 10 Mg Tablet PO Q8H PRN Spasms Diphenhydramine HCl 25 mg 03/08/22 14:23 Diphenhydramine Hcl Inj 50 Mg/Ml Vial IV PUSH Q6H PRN Itching Famotidine 20 mg 03/08/22 21:00 03/09/22 08:24 Famotidine 20 Mg Tablet PO 20 mg Q12HR JOSÉ MIGUEL Administration Fentanyl Citrate 25 mcg 03/07/22 13:30 Fentanyl Citrate Inj (*Crx) 100 Mcg/2 Ml Vial IV PUSH Q2M PRN Pain Vancomycin HCl 1,000 mg in 250 mls @ 250 mls/hr 03/09/22 00:00 03/09/22 00:16 Vancomycin 1,000 Mg/D5w 250 Ml IVPB 03/09/22 12:59 250 mls/h
--- NOTE | 2022-03-09 10:06 | PCOTNOTE ---
An occupational therapy evaluation was attempted this morning around 9:20 a.m. Upon arrival the patient was sitting up in a chair and had just finished physical therapy. The patient was reporting to this therapist that she has a device at home she uses to put on her socks/hose. The patient then proceeded to tell this therapist she was hot and feeling dizzy. The SPECIAL LIBRARY LIBRARIAN, Hilario, went to inform nursing. The patient became unresponsive and a rapid response was called. After a few minutes the patient became alert and responsive. The evaluation was told to be put on hold at that time and patient was being transferred back to bed.
--- NOTE | 2022-03-09 10:44 | PM.IMHP ---
H&P: HPI History of Present Illness Date/Time: 03/09/22 10:44 Chief Complaint: Syncope Narrative: Date of service: 03/09/2022 Jessica Archer is an extremely pleasant 72-year-old female with history anxiety, hyperlipidemia, osteoarthritis of the knees, and mild aortic stenosis who is POD #1 left total knee arthroplasty. She tolerated the procedure well and her pain was been well controlled. There were no immediate postoperative complications. The patient denies any issues with anesthesia. She did not have any shortness of breath postoperatively. No nausea or vomiting. She has been eating and drinking without difficulty. This morning she was participating in physical therapy and was up and walking around. This therapist helped her back into the chair at which time she stated she began to sweat (although she notes that she is usually a sweater), but then felt very hot and had a wave of nausea. The next thing she knew she woke up to a room full of people. Her blood pressure was noted to be 97/59 at that time. O2 sat 97% on room air. At the time of my evaluation, she is feeling back to her usual state of health. She does note that on 09/01/2021 she had an episode where she felt lightheaded and dizzy. She stated she felt ?wobbly, like I was drunk.? She thought maybe this was an episode of vertigo but she notes the room was not spinning. She was evaluated in the ED with a head CT and was sent home with meclizine, which she did not take. She notes that she has had maybe a total of 5 episodes similar to this over the course of 6 months and one time she was aware that her blood pressure was low in the 90s systolic. She reports that she had a preop EKG and blood work and was not informed of any issues with this. She states that she had an echo 3 years ago due to the presence of a murmur but was told based on these results there was nothing to worry about. She has never been evaluated by a air brake mechanic. She feels that she has been staying adequately hydrated. She is tolerating water and food intake. She has not had any episodes of diarrhea. She denies shortness of breath, chest pain, or palpitations. Denies headache. No confusion. Review of Systems Review of Systems: All systems reviewed & are unremarkable except as noted in HPI and below PMFSH Past Medical History Medical History At high risk for falls Bilateral primary osteoarthritis of knee Breast cancer screening by mammogram normal mammogram 06/16/2021 Bruxism Chronic anxiety Colon cancer screening Cologuard screening 05/17/2021 positive. normal colonoscopy 06/08/2021 Degenerative arthritis of left foot Former smoker Mild aortic stenosis Mitral regurgitation and aortic stenosis Mixed hyperlipidemia Obesity Osteoarthritis of both knees Positive colorectal cancer screening using Cologuard test (05/17/21) normal colonoscopy on 06/08/[address] Saldaña Situational anxiety Tension headache, chronic TMJ syndrome Urinary incontinence Vertigo Vitamin B12 deficiency anemia Surgical History Surgical History (Updated 03/09/22 @ 10:55 by Ashley Coffey PA-C) History of total left knee replacement History of tubal ligation Family History Family History Father Hypertension Heart disease Mother Family history of Parkinson's disease Grandparent Diabetes mellitus Social History Social History (Updated 03/09/22 @ 10:58 by Ashley Coffey PA-C) Social History: Ms. Archer lives at home alone. She is independent in her daily activities. She is retired. She has 1 dog and 11 cats. Her PCP is Dr. Abad. She designates her son, Prashanth Gonzalez, as her surrogate decision maker. She would like to be a full code. Smoking packs per day: 0.5 Smoking cigarettes per day: 10.0 Years smoked: 15 Smoking pack-years: 7.50 Smoking status:
--- NOTE | 2022-03-09 10:55 | ECG_ITS ---
Measurements Intervals Tarzan Rate: 81 P: 58 MI: 150 QRS: -19 QRSD: 97 T: 40 QT: 366 QTc: 426 Interpretive Statements SINUS RHYTHM COMPARED TO ECG 12/06/2021 14:23:46 NO SIGNIFICANT CHANGES Electronically Signed On 03-09-2022 22:15:21 CDT by Joan Pink M.D.
[2022-03-09 11:05] LABS: Hematocrit 37.8 % (37.0-47.0); Hemoglobin 12.5 g/dL (12.0-15.0); Mean Corpuscular HGB Conc 33.1 g/dl (32-36); Mean Corpuscular Hemoglobin 30.8 pg (26-34); Mean Corpuscular Volume 93.1 fl (80-100); Mean Platelet Volume 10.5 fl (7.4-10.4); Platelet Count Result 255 k/mm3 (150-375); Red Blood Count 4.06 M/mm3 (4.2-5.4); Red Cell Distribution Width 13.2 % (11.5-14.5); White Blood Count 12.3 K/mm3 (4.5-10.0)
[2022-03-09 11:27] LABS: Anion Gap 3 mmol/L (8-16); Blood Urea Nitrogen 11 mg/dL (7-17); Calcium 8.5 mg/dL (8.4-10.2); Carbon Dioxide 28 mmol/L (22-30); Chloride 104 mmol/L (98-107); Estimated Glomerular Filt Rate > 60; Glucose 196 mg/dL (65-110); Potassium 3.9 mmol/L (3.4-5.0); Sodium 135 mmol/L (137-145)
[2022-03-09] MEDS: SODIUM CHLORIDE 0.9% IV 500 ML 250 ML IV CONT (12:16)
[2022-03-09] MEDS: ACETAMINOPHEN 500 MG TABLET 1000 MG PO (16:28)
[2022-03-10] VITALS: PULSE 91
[2022-03-10 01:54] VITALS: BP 136/66; PULSE 88; RESP 16; TEMP 37.4; O2SAT 97
[2022-03-10] MEDS: ACETAMINOPHEN 500 MG TABLET 1000 MG PO ×2 (02:00→08:45)
[2022-03-10 04:00] VITALS: PULSE 82
[2022-03-10 05:47] LABS: Hematocrit 35.5 % (37.0-47.0); Hemoglobin 11.9 g/dL (12.0-15.0); Mean Corpuscular HGB Conc 33.5 g/dl (32-36); Mean Corpuscular Hemoglobin 31.2 pg (26-34); Mean Corpuscular Volume 92.9 fl (80-100); Mean Platelet Volume 10.7 fl (7.4-10.4); Platelet Count Result 221 k/mm3 (150-375); Red Blood Count 3.82 M/mm3 (4.2-5.4); Red Cell Distribution Width 13.1 % (11.5-14.5); White Blood Count 10.9 K/mm3 (4.5-10.0)
[2022-03-10 06:07] LABS: Anion Gap 4 mmol/L (8-16); Blood Urea Nitrogen 9 mg/dL (7-17); Calcium 8.6 mg/dL (8.4-10.2); Carbon Dioxide 26 mmol/L (22-30); Chloride 108 mmol/L (98-107); Estimated Glomerular Filt Rate > 60; Glucose 124 mg/dL (65-110); Potassium 3.9 mmol/L (3.4-5.0); Sodium 138 mmol/L (137-145)
[2022-03-10 08:00] VITALS: PULSE 107
[2022-03-10] MEDS: ASPIRIN 81 MG ENTERIC TABLET PO (08:43)
[2022-03-10] MEDS: predniSONE 5 MG TABLET PO (08:43)
[2022-03-10] MEDS: FAMOTIDINE 20 MG TABLET PO (08:44)
[2022-03-10] MEDS: MELOXICAM 7.5 MG TABLET PO (08:45)
[2022-03-10] MEDS: PANTOPRAZOLE 40 MG TABLET PO (08:45)
--- NOTE | 2022-03-10 10:55 | PM.PNORT ---
Progress Note: A&P Assessment and Plan (1) Status post total left knee replacement: Code(s): Z96.652 - Presence of left artificial knee joint Status: Acute Plan POD #2 Total knee arthroplasty Left. Syncopal episode yesterday. Patient is still feeling light headed and unsure when ambulating. Patient will be returning home without anyone staying with her. Will continue to monitor her another night. Tentative plan for discharge tomorrow. Subjective Subjective Date/Time Seen: 03/10/22 10:55 Interval history: Patient had a syncopal episode yesterday after my visit. Notes she has not had any other episodes since, however she is still feeling light headed. Notes pain with ROM of the knee. No numbness or tingling. Notes her pain is controlled. She has been working with PT. Review of Systems Review of Systems: All systems reviewed & are unremarkable except as noted in HPI and below Exam Narrative: 72-year-old overweight female. Resting comfortably in bed. Alert and oriented x3. No acute distress. Dressing intact with no drainage. Moderate swelling. Slight ecchymosis. No erythema. No hematoma. No warmth. Range of motion limited due to pain. Calf nontender. Neurologic status intact. No varicosities. Distal pulses palpable. Light touch sensation intact. Good capillary refill. Objective Data Vital Signs Vital Signs: Vital Signs - 24 hr 03/09/22 13:48 03/09/22 14:34 03/09/22 14:34 Temperature 99.4 F 98.4 F 98.4 F Pulse Rate 90 98 109 H Respiratory Rate 18 16 16 Blood Pressure 133/62 117/53 L 135/57 L Pulse Oximetry 100 99 98 03/09/22 14:35 03/09/22 16:03 03/09/22 18:15 Temperature 98.4 F 97.4 F L Pulse Rate 112 H 90 84 Respiratory Rate 16 16 Blood Pressure 129/54 L 130/65 Pulse Oximetry 98 97 03/09/22 22:00 03/09/22 20:00 03/10/22 00:00 Temperature 99.1 F Pulse Rate 90 118 H 91 Respiratory Rate 16 Blood Pressure 134/70 Pulse Oximetry 99 03/10/22 01:54 03/10/22 04:00 03/10/22 08:00 Temperature 99.3 F Pulse Rate 88 82 107 H Respiratory Rate 16 Blood Pressure 136/66 Pulse Oximetry 97 Intake/Output Intake/Output: Intake & Output 03/07/22 03/08/22 03/09/22 03/10/22 23:59 23:59 23:59 23:59 Intake Total 790 1880 240 Output Total 1295 900 5482 Balance -410 042 -445 Meds/Results Medications: Active Medications Generic Name Dose Route Start Last Admin Trade Name Freq PRN Reason Stop Dose Admin Acetaminophen 1,000 mg 03/09/22 09:00 03/10/22 08:45 Acetaminophen 500 Mg Tablet PO 1,000 mg Q6H PRN Administration Pain Rated 1-3 Aspirin 81 mg 03/08/22 17:00 03/10/22 08:43 Aspirin 81 Mg Enteric Tablet PO 81 mg BID JOSÉ MIGUEL Administration Cyclobenzaprine HCl 10 mg 03/08/22 14:23 Cyclobenzaprine Hcl 10 Mg Tablet PO Q8H PRN Spasms Diphenhydramine HCl 25 mg 03/08/22 14:23 Diphenhydramine Hcl Inj 50 Mg/Ml Vial IV PUSH Q6H PRN Itching Famotidine 20 mg 03/08/22 21:00 03/10/22 08:44 Famotidine 20 Mg Tablet PO 20 mg Q12HR JOSÉ MIGUEL Administration Fentanyl Citrate 25 mcg 03/07/22 13:30 Fentanyl Citrate Inj (*Crx) 100 Mcg/2 Ml Vial IV PUSH Q2M PRN Pain Meloxicam 7.5 mg 03/08/22 17:00 03/10/22 08:45 Meloxicam 7.5 Mg Tablet PO 7.5 mg BID JOSÉ MIGUEL Administration Naloxone HCl 0.1 mg 03/08/22 14:23 Naloxone Hcl 0.4 Mg/Ml Vial IV PUSH Q2M PRN Opiate Reversal Ondansetron HCl 4 mg 03/07/22 13:30 Ondansetron Inj 4 Mg/2 Ml Vial IV PUSH ONCE PRN Nausea Ondansetron HCl 4 mg 03/08/22 14:23 Ondansetron Inj 4 Mg/2 Ml Vial IV PUSH Q4H PRN Nausea And Vomiting Oxycodone HCl 5 mg 03/08/22 14:23 Oxycodone Hcl (*Crx) 5 Mg Tab Ir PO Q4H PRN Pain Rated 4-6 Oxycodone HCl 10 mg 03/08/22 14:23 Oxycodone Hcl (*Crx) 5 Mg Tab Ir PO Q4H PRN Pain Rated 7-10 Pantoprazole Sodium 40 mg 03/09/22 09:00 03/10/22 08:45 Pa
--- NOTE | 2022-03-10 13:22 | PM.DS ---
DS: Admitting Diagnosis Discharge Date 03/10/22 Admitting Diagnosis OA knee Left DS: Discharge Diagnosis Discharge Diagnosis (1) Status post total left knee replacement: Code(s): Z96.652 - Presence of left artificial knee joint Status: Acute Assessment and Plan: Postop day 1: Left total knee arthroplasty. Patient tolerated procedure well. She did have a syncopal episode yesterday. Symptoms have resolved. Pain manageable with pain medication. No numbness or tingling. We had a lengthy discussion regarding postoperative wound care, limitations, expectations, and exercises. Patient shows good understanding. She has had initial physical therapy and is tolerating it well. DVT prophylaxis: 81 mg baby aspirin b.i.d. for 14 days. Pain medication: Percocet. Prednisone. Meloxicam. Patient has followup appointment with Dr. Christine in 3 weeks. DS: Summary Hospital Course Reason for hospitalization: Total knee arthroplasty Hospital Course: Patient tolerated procedure well. Did have a syncopal episode yesterday. Symptoms have resolved. Has had initial PT/OT. Status at Discharge Functional status at discharge: uses cane/walker Overall status at discharge: patient is progressing back to baseline Time Spent with Patient Time attestation: Total time spent providing and/or coordinating discharge services: Exam Narrative: Obese 72 y/o female. Resting comfortably in bed. Wearing compression socks bilaterally. Dressing intact with no drainage. Moderate swelling. No ecchymosis. No erythema. No hematoma. Range of motion limited due to pain. 5-85 Calf nontender. Neurologic status intact. No varicosities. Distal pulses palpable. DS: Data Data Completed and Pending Labs on day of discharge: Labs from last 24 hours 03/10/22 03/10/22 05:25 05:25 WBC 10.9 H RBC 3.82 L Hgb 11.9 L Hct 35.5 L MCV 92.9 MCH 31.2 MCHC 33.5 RDW 13.1 Plt Count 221 MPV 10.7 H Sodium 138 Potassium 3.9 Chloride 108 H Carbon Dioxide 26 Anion Gap 4 L BUN 9 Creatinine 0.80 Estim Creat Clear Calc Not Reportable Estimated GFR > 60 Glucose 124 H Calcium 8.6 Discharge Plan Discharge Attending physician on discharge: Yusuf Christine Consulting providers: Ashley Coffey Discharging Clinician: Lizbet Mulligan Anticipated Discharge Date/Time: 03/10/22 13:20 Patient Disposition: Home, Self-Care Activity: january shower Diet: regular Wound Care Instructions: follow printed instructions Discharge Instructions: See green instruction sheet Patient Instructions: Pain Management (ED), Precautions after Total Joint Replacement Surgery (ED), Joint Replacement Surgery (GEN), Knee Replacement (GEN) Follow-up/Referrals: Lizbet Mulligan PA [Physician Ip Attorney] - Discharge Medications: New prednisone 5 mg tablet 5 mg PO DAILY 21 Days Qty: 21 0RF aspirin 81 mg tablet,delayed release (DR/EC) 81 mg PO BID 14 Days Qty: 28 0RF oxycodone-acetaminophen 5-325 mg tablet 1 - 2 tablet PO Q4-6H MDD 6 PRN (Reason: pain) Qty: 30 0RF meloxicam 15 mg tablet 15 mg PO DAILY Qty: 30 0RF Rx Instructions: Cut in half. Take 1/2 in morning and 1/2 at night. Take with food. Stop if stomach upset. Continued meloxicam 7.5 mg tablet 7.5 mg PO BID omeprazole 20 mg capsule,delayed release(DR/EC) 20 mg PO DAILY Qty: 30 11RF Date of admission: 03/09/22 11:09 Primary Care Provider: Oliver Abad Admitting Provider: Yusuf Christine Attending physician on admission: Yusuf Christine Condition: Stable Quality VTE Prophylaxis VTE prophylaxis: mechanical ordered
[2022-03-10 14:00] VITALS: BP 123/72; PULSE 97; RESP 16; TEMP 36.6; O2SAT 99
--- NOTE | 2022-03-10 15:43 | PM.IMPN ---
Progress Note: A&P Assessment and Plan (1) Status post total left knee replacement: Code(s): Z96.652 - Presence of left artificial knee joint Status: Acute Assessment and Plan: POD #2 left total knee arthroplasty Management per Orthopedic surgery Patient will return home today with outpatient physical therapy arranged (2) Syncope: Code(s): R55 - Syncope and collapse Status: Acute Assessment and Plan: Episode of syncope on 03/09 while participating in therapy Most likely vasovagal in origin due to pain response during therapy BP slightly low following the episode at 97/59. Received 500 cc IV fluid bolus. Subsequent blood pressure is stable. Orthostatic vital signs negative. Continue to monitor blood pressures at home intermittently and follow-up with PCP for BP review. Echocardiogram reviewed which revealed mild aortic stenosis with EF >70%. Follow-up with PCP for continued monitoring. Laboratory workup unremarkable. EKG reviewed which showed sinus rhythm Patient monitored on telemetry overnight which also revealed sinus rhythm Subjective Date/time seen: 03/10/22 15:43 Interval history: Date of service: 03/10/2022 Jessica Archer is a 72-year-old female with history of anxiety, hyperlipidemia, osteoarthritis, and mild aortic stenosis who is POD #2 left total knee arthroplasty. She is feeling very well today. She therapy and feels that she is getting around well. She will not having any episodes of dizziness, lightheadedness, sweating. No presyncope. She plans to return home today where she lives alone. Her son will be available to help her if needed but she feels comfortable with caring for herself at home. She denies shortness breath, cough, chest pain, nausea, vomiting, fever, or chills. Appetite has been good. Denies abdominal pain, cramping, bloating. No urinary symptoms. Review of Systems Review of Systems: All systems reviewed & are unremarkable except as noted in HPI and below Exam Narrative: General: Well-nourished, well-appearing 72-year-old female, sitting in a chair by the bedside, comfortable, NARD Neuro: awake, alert and oriented x4, speech clear, no focal neuro deficits noted HEENMT: normocephalic, atraumatic, EOMI, sclerae anicteric Respiratory: clear to auscultation bilaterally, nonlabored breathing Cardio: regular rate, regular rhythm, systolic murmur heard best at left sternal border Abdomen: nondistended, normoactive bowel sounds, soft, nontender to palpation Extremities: left knee covered in bandage and ice pack, left thigh and calf nontender to palpation, RLE no edema or erythema, sensation intact Skin: no rashes or lesions, warm and dry Psych: appropriate mood and affect, judgment and insight intact Objective Data Vital Signs Vital Signs: Vital Signs - 24 hr 03/09/22 16:03 03/09/22 18:15 03/09/22 22:00 Temperature 97.4 F L 99.1 F Pulse Rate 90 84 90 Respiratory Rate 16 16 Blood Pressure 130/65 134/70 Pulse Oximetry 97 99 03/09/22 20:00 03/10/22 00:00 03/10/22 01:54 Temperature 99.3 F Pulse Rate 118 H 91 88 Respiratory Rate 16 Blood Pressure 136/66 Pulse Oximetry 97 03/10/22 04:00 03/10/22 08:00 03/10/22 14:00 Temperature 97.9 F Pulse Rate 82 107 H 97 Respiratory Rate 16 Blood Pressure 123/72 Pulse Oximetry 99 Intake/Output Intake/Output: Intake & Output 03/07/22 03/08/22 03/09/22 03/10/22 23:59 23:59 23:59 23:59 Intake Total 790 1880 480 Output Total 0974 070 6918 Balance -410 980 -520 Meds/Results Medications: Active Medications Generic Name Dose Route Start Last Admin Trade Name Freq PRN Reason Stop Dose Admin Acetaminophen 1,000 mg 03/09/22 09:00 03/10/22 08:45 Acetaminophen 500 Mg Tablet PO 1,000 mg Q6H PRN Administration Pain Rated 1-3 Aspirin 81 mg 03/08/22 17:00 03/10/22 08:43 Aspirin 81 Mg Enteric Tablet PO 81 mg BID JOSÉ MIGUEL Adminis
== END 2022-03-10 15:45 | disposition home or self-care (01) ==
LOC: ANHSURGERY 11:09 → ANH2MED 11:09
PROVIDERS: Physician Assistant; Admitting Provider Orthopaedic Surgery; PCP Family Medicine; Visit Provider Orthopaedic Surgery
PROC: (CPT 27447; principal; 2022-03-08 10:30)
DX: M17.12 Unilateral primary osteoarthritis, left knee (principal); E66.01 Morbid (severe) obesity due to excess calories; Z68.38 Body mass index [BMI] 38.0-38.9, adult; Z87.891 Personal history of nicotine dependence; E78.5 Hyperlipidemia, unspecified; F41.9 Anxiety disorder, unspecified; R55 Syncope and collapse
CPT/HCPCS: 27447; 36415; 73560; 80048; 85027; 86850; 86900; 86901; 93005; 93306; 97110; 97116; 97161; 97165; 97530; 97535; A9270; C1713; C1776; G0378; J0131; J0171; J1040; J1100; J1885; J2250; J2270; J2405; J2704; J2795; J3010; J3370; J7040; J7120; J7512

== ENCOUNTER 2022-04-21 12:30 | Outpatient (RCR) | payer MEDICARE, OTHER, SELFPAY ==
--- NOTE | 2022-03-31 10:14 | PTOPEVAL ---
Thank you for referring Jessica Archer to [facility].? She is scheduled to be seen for therapy? 2x/week for 3 weeks. Please review, sign, date and return this plan of care NELLIE. I agree with and certify that the following plan of care is medically necessary. Referring Physician Date Attending Provider: Yusuf Christine MD Cardiovascular History Hx Heart Murmur Yes Respiratory History Hx Respiratory Disorders No Significant History Gastrointestinal History Hx Gastroesophageal Reflux Disease Yes Hx Irritable Bowel Yes Genitourinary History Hx Other Genitourinary Disorders Yes: URINARY INCONTINENCE Musculoskeletal History Hx Arthritis Yes: GENERALIZED Hx Other Musculoskeletal Disorders Yes: OA LT KNEE Hematological History Hx Hematological Disorders No Significant History Endocrine History Hx Endocrine Disorders No Significant History HEENT History Hx Cataracts Yes: BILAT REMOVED Hx Other HEENT Disorders Yes: TMJ,GRINDS TEETH AT NIGHT Integumentary History Hx Shingles Yes: ~2013 RT HAND Reproductive History Hx Post Menopausal Yes Hx Tubal Ligation Yes Psychosocial History Hx Anxiety Yes Evaluation Information Diagnosis L TKR Onset 03-08-22 Subjective Information have been doing exercises at Query Text:As Reported By Patient/ home-- supine and sitting Family Prior Level of Function Activity Level (Last 3 Months) Activity of Daily Living Ability Independent Indoor/Home Mobility Independent Community Mobility Independent Stairs Ability Independent Functional Cognition (Planning, Shopping Independent , Taking Medications) Cooking Yes Cleaning Yes Laundry Yes Shopping Yes Driving Yes Home Setting Home Type House,Multiple Levels Environmental Barriers Railing, Ascend Right,Stairs, Greater than 4 Living Situation Alone Mobility Assistive Devices (Used Last 3 None,Cane Months) Comments Additional Prior Level of Function indep with bathing, dressing Comments and in home tasks; doing OK on stairs Pain Assessment Pain Scale Pain Scale Used Numeric (1 - 10) Self Report Pain Assessment Left Knee(s) Reported Pain Level 6 Pain Frequency Acute,Continuous Lowest Pain Intensity 1 Greatest Pain Intensity 6 Pain Aggravating Factors Exercise/Activity Other Pain Aggravating Factors bending knee;reported walk/
--- NOTE | 2022-04-21 13:15 | PTOPEVAL ---
PHYSICAL THERAPY DISCHARGE REPORT 04-21-22 Refer to the clinical summary below, for her status today, compared to the initial evaluation. Discharge PT services. Thank you for referring Jessica Archer to [facility].? Please review, sign, date and return this Discharge report NELLIE. I agree with and certify that the following plan of care is medically necessary. Referring Physician Date Attending Provider: Yusuf Christine MD Subjective Information Jessica reports: knee is doing Query Text:As Reported By Patient/ well, progressed nicely and Family ready for discharge from PT; Pain Assessment Pain Scale Pain Scale Used Numeric (1 - 10) Self Report Pain Assessment Left Knee(s) Reported Pain Level 0 Pain Description Aching,Dull Pain Frequency Acute,Intermittent Lowest Pain Intensity 0 Greatest Pain Intensity 4 Pain Relief Interventions Used By Medication Patient Other Alleviating Interventions taking meloxicam for general arthritis pain PRN; extra strength tylenol PRN Gross Lower Extremity Range of Motion L knee ROM Comments supine: passive stretch (-5') and active in sitting (-5') extension sitting flexion 110' Gross Lower Extremity Strength functional strength testing: L LE - supine bridge x 20 reps; - single leg standing without UE support x 11 seconds - with 3# ankle wt: supine: SLR x 20 reps; side lying hip abduction to ~ 10' x 20 reps; prone knee flexion x 20 reps , prone hip extension x 10 reps; verbal review of HEP; to continue and increase activity as tolerated; Gait Assessment Ambulation Assistive Devices None Ambulation Surface Level,Smooth Ambulation Ability Independent Cues Needed For Ambulation None Additional Ambulation Comments good gait pattern--good step length and wt shift onto L LE 2 Minute Walk Total Distance Walked (feet) 420 2 Minute Walk Gait Speed Score (feet/ 3.50 second) 2 Minute Walk Test Comments reports no increase in pain, did have SOB PT Clinical Summary Jessica has received 7 PT sessions, s/p L TKR.
== END 2022-04-22 11:29 | disposition home or self-care (01) ==
LOC: ANHPT 12:30
PROVIDERS: PCP Family Medicine; Referring Provider Orthopaedic Surgery; Visit Provider Orthopaedic Surgery
DX: Z47.1 Aftercare following joint replacement surgery (principal); Z96.652 Presence of left artificial knee joint
CPT/HCPCS: 97110; 97112; 97161; 97530

== ENCOUNTER → 2024-01-15 18:06 | Outpatient (CLI) | payer MEDICARE, OTHER, SELFPAY ==
--- NOTE | ~2024-01-15 | XR_ITS ---
EXAMINATION: XR cervical spine 4-5V DATE: 01/15/2024 19:53 INDICATION: Radiculopathy, cervical region. Right neck pain. TECHNIQUE: 7 views of cervical spine were obtained. COMPARISON: None. FINDINGS: There is 9 degrees levocurvature of cervicothoracic spine. Vertebral body heights are kaushal l. There is moderately decreased disc height at C5-C6 and C6-C7. There is multilevel uncovertebral chu int osteoarthritis, severe bilaterally at C5-C6 and C6-C7. There is multilevel mild facet joint osteo arthritis. There is mild central canal stenosis at C5-C6 and C6-C7. No prevertebral soft tissue swell ing. IMPRESSION: 1. Moderate cervical spondylosis. Reviewed, dictated and finalized at location E.
== END ==
PROVIDERS: PCP Family Medicine; Visit Provider Family Medicine
DX: M47.22 Other spondylosis with radiculopathy, cervical region (principal)
CPT/HCPCS: 72050